=== PATIENT | female | born 1945 | race Caucasian/White ===

== ENCOUNTER 2017-05-28 16:35 | Inpatient (IN) ==
[2017-05-28] MEDS ORDERED: ACETAMINOPHEN 325 MG TABLET PO PRN (16:42)
[2017-05-28] MEDS ORDERED: HYDROmorphone 2 MG/ML SYRINGE IV PRN (16:42)
[2017-05-28] MEDS ORDERED: ONDANSETRON 4 MG/2 ML VIAL IV PRN (16:42)
[2017-05-28] MEDS ORDERED: cefTRIAXone 2 GM in DEXTROSE 5% IN WATER 50 ML IV SCH (16:45)
[2017-05-28] MEDS: 0.9 % SODIUM CHLORIDE 1,000 ML IV SCH (19:35)
[2017-05-28] MEDS: cefTRIAXone 2 GM VIAL IV SCH (20:01)
[2017-05-28] MEDS: oxyCODONE/APAP 5/325MG TABLET PO PRN (20:01)
[2017-05-28] MEDS ORDERED: ZOLPIDEM 5 MG TABLET PO PRN (21:00)
[2017-05-28] MEDS: 0.9 % SODIUM CHLORIDE 10 ML SYRINGE IV SCH (22:19)
[2017-05-29 01:23] LABS: ALT/SGPT 31 U/l (0-40); Albumin 3.4 gm/dL (3.2-5.2); Albumin/Globulin Ratio 1.2 (1.0-2.3); Alkaline Phosphatase 101 U/L (39-117); Blood Urea Nitrogen 30 mg/dl (8-23)
[2017-05-29] MEDS: 0.9 % SODIUM CHLORIDE 10 ML SYRINGE IV SCH ×3 (05:55→22:00)
[2017-05-29] MEDS: 0.9 % SODIUM CHLORIDE 1,000 ML IV SCH ×3 (05:56→19:04)
[2017-05-29] MEDS: cefTRIAXone 2 GM VIAL IV SCH (09:32)
[2017-05-29 10:19] LABS: Basophils # (Auto) 0 K/mcL (0.0-0.3); Basophils % (Auto) 0.3 % (0.0-2.0); Eosinophils # (Auto) 0.3 K/mcL (0.0-0.7); Eosinophils % (Auto) 4.1 % (0.0-7.0); Granulocytes % (Auto) 70.5 % (38.0-78.0); Lymphocytes # (Auto) 1.4 K/mcL (1.5-4.8); Lymphocytes % (Auto) 19.9 % (15.5-49.0); Mean Cell Volume 87.6 fL (80.0-100.0); Mean Corpuscular HGB Conc 33.6 g/dL (31.0-36.0); Mean Corpuscular Hemoglobin 29.4 pg (26.0-34.0); Monocytes # (Auto) 0.4 K/mcL (0.1-0.9); Monocytes % (Auto) 5.2 % (1.0-12.0); Platelet Count 181 K/mcL (140-440); RBC 4.57 M/mcL (4.00-5.20); Red Cell Distribution Width 13.8 % (11.5-14.5)
[2017-05-29] MEDS ORDERED: INDOMETHACIN 25 MG CAPSULE PO ONE (14:18)
[2017-05-29] MEDS ORDERED: NITROGLYCERIN 0.6 MG/HR PATCH TD ONE (14:30)
[2017-05-29] MEDS ORDERED: MIDAZOLAM 2 MG/2 ML VIAL ONE (15:12)
[2017-05-29] MEDS ORDERED: PROPOFOL 60 ML IV ONE (15:12)
[2017-05-29] MEDS ORDERED: MIDAZOLAM 2 MG/2 ML VIAL IV ONE ×2 (15:15→15:30)
[2017-05-29] MEDS ORDERED: PROPOFOL 200 MG/20 ML VIAL IV ONE ×2 (15:15→15:30)
[2017-05-29] MEDS ORDERED: POTASSIUM PHOSPHATE 40 MEQ in 0.9 % SODIUM CHLORIDE 500 ML IV ONE (18:15)
--- NOTE | 2017-05-29 18:21 | Discharge Summary ---
Providers - Providers Patient information: Note initiated : 05/29/17 at 6:18 pm Service Date, if different from initiated Date: [] Patient: Delroy He 71 y/o F admitted on 05/28/17 for Bile Leak. Chief Complaint: [] Date of admission: 05/28/17 Discharge date: 05/30/17 Attending physician: Nba Roberts Hospitalization Hospital course: 71-year-old female with history of chronic calculus cholecystitis who underwent an uneventful cholecystectomy on 24 May 2016. She had a long cystic duct which was clipped with 4 clips proximally. She had small amount of bleeding from the bed of the liver show a 5 Peter-Ponce drain was placed. She was seen the following morning and did not have any significant drainage in the drain but it was left to be followed up in 1 week. She was discharged but returned to the office on 26 May because of bilious leak on her dressing. They have family were re-instructed as to how to keep the drain on suction. She had an ERCP done on 28 May which confirmed a bile leak from the liver bed. They had been emptying about 50 cc per day however there was a problem with the drain so Dr. Solis was contacted and arrangements were made for admission with follow-up ERCP and stenting. She underwent attempted ERCP today but the papilla could not be cannulated after 2 hours. The patient is felt to have probably drainage from an accessory duct since it is unlikely that all 4 clips had fallen off of the main cystic duct. Her white blood count is normal and her liver panel is normal. Dr. Solis has contacted gastroenterology at [facility] in [place] and arrangements are being made for her to be transferred to [facility] for further evaluation and treatment. At the present time she is having significant pain related to the ERCP. I will do labs with amylase and lipase in the morning and hopefully she can be transferred in the morning for follow-up treatment. Discharge diagnosis: Post cholecystectomy bile leak Secondary discharge diagnosis: Postoperative laparoscopic cholecystectomy Reason for admission: Postoperative bile leak Procedures: Attempted ERCP with papillotomy and stenting Complications: None Exam Temp Pulse Resp BP Pulse Ox 98.5 F 78 16 99/55 100 05/29/17 18:05 05/29/17 18:05 05/29/17 18:05 05/29/17 18:05 05/29/17 18:05 - General physical appearance well developed, well nourished, no distress - Eyes PERRL, normal ocular movement. negative: icteric - ENT normal pinna, normal nares, normal mucosa, no hearing loss, no congestion - Head Head exam IM: Present: atraumatic, normocephalic - Neck no masses, no bruits, trachea midline, no lymphadectomy, no venous distension - Cardiovascular Cardiovascular exam IM: Present: normal rate and rhythm - Respiratory normal expansion, normal respiratory effort, clear to percussion, clear to auscultation - Abdomen Abdomen: Present: tender (Diffusely tender in upper abdomen with moderate distention and active bowel sounds), bowel sounds Hernia: Present: none - Integumentary Present: no rash, no growths, no abnormal pigmentation - Neurologic Present: normal coordination, normal sensation - Musculoskeletal Present: normal gait, normal posture - Psychiatric Present: oriented to time, oriented to person, oriented to place, speech is normal, memory intact Discharge Plan - Patient/Caregiver Discharge Instructions Activity: other (Patient will be transferred to [facility] in [place], [place] for a higher level of care) Diet: NPO - Follow up Plan Disposition: [facility] Prognosis: Good Rehab Potential: Good I certify that the patient requires SNF services.: No Overall status at discharge: patient is not back to baseline Pending Studies Resuscitation Status Full Code Diet NPO after Midnight Diet Start SatMay 29 Breakfast Ceftriaxone Sodium (Rocephin) 2 gm IV DAILY [facility] Last Admin: 05/29/17 09:32 Dose: 2 gm Admin: 05/28/17 20:01 Dose: 2 gm Hydromorphone HCl (Dilaudid) 0.5 mg IV Q2HP PRN PRN Reason: PAIN LEVEL > 6 Last Admin: 05/29/17 18:00 Dose: 0.5 mg Sodium Chloride (Sodium Chloride 0.9%) 1,000 mls @ 75 mls/hr IV .[id number] [facility] Last Admin: 05/29/17 09:31 Dose: 75 mls/hr Infusion: 05/29/17 08:55 Dose: 75 mls/hr Admin: 05/29/17 05:56 Dose: Not Given Admin: 05/28/17 19:35 Dose: 75 mls/hr Oxycodone/Acetaminophen (Percocet 5-325 Mg) 1 tab PO Q4HP PRN PRN Reason: PAIN LEVEL 3-6 Last Admin: 05/28/17 20:01 Dose: 1 tab Sodium Chloride (Saline Flush) 10 ml IV Q8 IZZY Last Admin: 05/29/17 14:54 Dose: Not Given Admin: 05/29/17 05:55 Dose: Not Given Admin: 05/28/17 22:19 Dose: Not Given Shift Summary 05/29/17 15:47 Shift Summary by Jennifer Villasenor Pt had ERCP today by Dr. Crenshaw. Has been NPO since midnight. Received indomethacin and Nitro patch to right shoulder.Nitro patch is to be removed by 0250 on this coming night order selector. Got scheduled rocephin IV ABOX push. Dressing change done to lap sites and MILDRED drain site per Dr. Roberts. They are covered with blayne and tegaderm. Pleasant and cooperative. Calls appropriately. Initialized on 05/29/17 15:47 - END OF NOTE
[2017-05-29] MEDS ORDERED: POTASSIUM PHOSPHATE 66 MEQ/15 ML VIAL IV ONE (18:55)
[2017-05-30] MEDS: oxyCODONE/APAP 5/325MG TABLET PO PRN (03:57)
[2017-05-30 05:43] LABS: Basophils # (Auto) 0 K/mcL (0.0-0.3); Basophils % (Auto) 0 % (0.0-2.0); Eosinophils # (Auto) 0.1 K/mcL (0.0-0.7); Eosinophils % (Auto) 0.9 % (0.0-7.0); Granulocytes % (Auto) 78.3 % (38.0-78.0); Lymphocytes # (Auto) 1.1 K/mcL (1.5-4.8); Lymphocytes % (Auto) 14.5 % (15.5-49.0); Mean Cell Volume 88.9 fL (80.0-100.0); Mean Corpuscular HGB Conc 33.2 g/dL (31.0-36.0); Mean Corpuscular Hemoglobin 29.5 pg (26.0-34.0); Monocytes # (Auto) 0.5 K/mcL (0.1-0.9); Monocytes % (Auto) 6.3 % (1.0-12.0); Platelet Count 191 K/mcL (140-440); RBC 4.33 M/mcL (4.00-5.20); Red Cell Distribution Width 14.1 % (11.5-14.5)
[2017-05-30 06:06] LABS: ALT/SGPT 34 U/l (0-40); Alkaline Phosphatase 116 U/L (39-117); Amylase 541 U/L (28-100); Bilirubin,Direct 0.4 mg/dL (0.0-0.3); Blood Urea Nitrogen 19 mg/dl (8-23); Gamma Glutamyl Transpeptidase 68 U/L (5-36); Lipase 140 U/L (7-60); Magnesium 1.8 mg/dL (1.6-2.5); Uric Acid 2.9 mg/dL (2.5-8.0)
[2017-05-30] MEDS: 0.9 % SODIUM CHLORIDE 1,000 ML IV SCH (07:15)
[2017-05-30] MEDS: 0.9 % SODIUM CHLORIDE 10 ML SYRINGE IV SCH ×2 (07:47→14:30)
--- NOTE | 2017-05-30 08:03 | Operative Note ---
DATE OF OPERATION: 05/29/2017 PREOPERATIVE DIAGNOSIS: Bile leak. POSTOPERATIVE DIAGNOSIS: Failed bile duct cannulation. PROCEDURE: Alternative ____ CONSENT: Patient's questions were answered. Risks discussed including perforation, pancreatitis, bleeding and infection. Patient has recently undergone a cholecystectomy and has bile leaking from her Peter-Ponce drain. A HIDA scan has confirmed a bile leak. With intravenous sedation, the Olympus endoscope was introduced into the esophagus and advanced to the second part of the duodenum. The ampulla of Vater was identified and appeared normal. However, a bile duct cannulation was not possible. While bile duct cannulation was not achieved, direct cannulation was attempted for approximately 50 minutes through multiple maneuvers. At that point we did carefully do a needle knife precut papillotomy across the top of the cannula. Bile could be seen coming from the small opening but again all attempts to cannulate that opening failed. There was of course increasing edema and bleeding, making further attempts futile. A couple of the injections were interstitial further causing edema. The pancreatic duct was carefully avoided. After approximately 2 hours of attempt, the procedure was discontinued. There was no bleeding at the end of the procedure, but the papilla was significantly swollen and the scope was withdrawn. ASSESSMENT: Failed bile duct cannulation despite precut papillotomy. PLAN: We will arrange for transfer to a tertiary referral center for further attempt at bile duct cannulation, perhaps acquiring a Rendezvous procedure. MIL:kaleb Job ID: [id number] Doc ID: [id number] Prosper Roberts M.D.
[2017-05-30] MEDS: cefTRIAXone 2 GM VIAL IV SCH (10:02)
[2017-05-30] MEDS ORDERED: BISACODYL 10 MG SUPP.RECT PR PRN (10:57)
--- NOTE | 2017-05-30 16:29 | Discharge Summary ---
Providers - Providers Patient information: Note initiated : 05/30/17 at 4:26 pm Service Date, if different from initiated Date: [] Patient: Delroy He 71 y/o F admitted on 05/29/17 for Bile Leak. Chief Complaint: [] Date of admission: 05/28/17 Discharge date: 05/30/17 Attending physician: Nba Roberts Hospitalization Hospital course: Patient has done well since last evening. There is been a delay in having her transferred because of lack of bed availability and because of other conditions. The patient has a situation that cannot be addressed at a closer facility such as in [place] and needs to be at the [facility] system for gastroenterology liver procedure. She is doing well today. Her amylase and lipase are mildly elevated but her symptoms have improved significantly. She has been approved for transfer to the [facility] in [facility] by fixed wing airflight tonight. She is transferred in stable satisfactory condition. Discharge diagnosis: Postcholecystectomy bile leak Reason for admission: Recurrent abdominal pain and bile leak Procedures: Attempted ERCP and papillotomy Complications: None Exam Temp Pulse Resp BP Pulse Ox 98.6 F 74 18 130/69 93 05/30/17 12:00 05/30/17 07:20 05/30/17 12:00 05/30/17 12:00 05/30/17 12:00 Discharge Plan - Patient/Caregiver Discharge Instructions Activity: other (Patient will be transferred to [facility] in [place], [place] for a higher level of care) Diet: NPO - Follow up Plan Disposition: [facility] Prognosis: Good Rehab Potential: Good I certify that the patient requires SNF services.: No Overall status at discharge: patient is not back to baseline Pending Studies Resuscitation Status Full Code Diet Full Liquid Diet Start Betzy May 30 1004 Bisacodyl (Dulcolax) 10 mg AK DAILYP PRN PRN Reason: Constipation Last Admin: 05/30/17 11:41 Dose: 10 mg Ceftriaxone Sodium (Rocephin) 2 gm IV DAILY IZZY Last Admin: 05/30/17 10:02 Dose: 2 gm Admin: 05/29/17 09:32 Dose: 2 gm Admin: 05/28/17 20:01 Dose: 2 gm Hydromorphone HCl (Dilaudid) 0.5 mg IV Q2HP PRN PRN Reason: PAIN LEVEL > 6 Last Admin: 05/29/17 18:00 Dose: 0.5 mg Sodium Chloride (Sodium Chloride 0.9%) 1,000 mls @ 75 mls/hr IV .[id number] [facility] Last Admin: 05/30/17 07:15 Dose: 75 mls/hr Infusion: 05/30/17 07:14 Dose: 0 mls/hr Admin: 05/29/17 19:04 Dose: 75 mls/hr Infusion: 05/29/17 19:04 Dose: 75 mls/hr Admin: 05/29/17 09:31 Dose: 75 mls/hr Infusion: 05/29/17 08:55 Dose: 75 mls/hr Admin: 05/29/17 05:56 Dose: Not Given Admin: 05/28/17 19:35 Dose: 75 mls/hr Oxycodone/Acetaminophen (Percocet 5-325 Mg) 1 tab PO Q4HP PRN PRN Reason: PAIN LEVEL 3-6 Last Admin: 05/30/17 03:57 Dose: 1 tab Admin: 05/28/17 20:01 Dose: 1 tab Sodium Chloride (Saline Flush) 10 ml IV Q8 IZZY Last Admin: 05/30/17 14:30 Dose: Not Given Admin: 05/30/17 07:47 Dose: Not Given Admin: 05/29/17 22:00 Dose: Not Given Admin: 05/29/17 14:54 Dose: Not Given Admin: 05/29/17 05:55 Dose: Not Given Admin: 05/28/17 22:19 Dose: Not Given Shift Summary 05/30/17 03:45 Shift Summary by Dorothy Schmidt Slept most of the night. Has had minimal abdominal pain; meds once. Up to BR w/ SBA. Knows she is going to [facility] sometime today if they get a bed available. There has been talk about ground and air, but I don't think it's been decided yet how she'll get there. Initialized on 05/30/17 03:45 - END OF NOTE
== END 2017-05-30 17:00 | disposition short-term general hospital (02) | DRG 446 ==
LOC: MEDSUR → PREINTOOBSV 16:37 → MEDSUR 05-29 20:51
PROVIDERS: ADMIT Family Medicine Adult Medicine; ATTEND Family Medicine Adult Medicine

== ENCOUNTER 2021-03-29 07:37 | Inpatient (IN) ==
--- NOTE | 2021-03-29 08:03 | Emergency Department Note ---
HPI General Chief complaint: Neuro Symptoms/Deficit Stated complaint: Sinus congestion, Facial droop? Time Seen by Provider: 03/29/21 07:40 Source: patient Mode of arrival: ambulatory Limitations: no limitations History of Present Illness HPI Narrative: Narrative: 75 yo F w/ h/o previous CVA p/w R facial droop. She reports onset of R facial droop noted by friends on Saturday, was last seen on Saturday w/o droop. The droop is intermittent per her and daughter w/ no clear inciting, aggravating, alleviating factors. She additionally notes paresthesia over the right side of the face and slight occasional difficulty finding words. These Sx were preceded by R nare and eye drainage on Saturday, which then switched to the L on Saturday, and resolved on Saturday. She did have facial droop as well w/ her previous CVA. She has not had any recent cold sores, does not engage in activities that would expose her to tick bites. Related Data Home Medications Medication Instructions Recorded Confirmed oawehsja-vnz-AQ-lycopen-lutein 1 each PO QDAY 01/10/15 03/29/21 milk thistle 175 mg tablet 175 mg PO BID tab 10/18/15 03/29/21 aspirin 81 mg tablet,delayed 81 mg PO QDAY 11/12/17 03/29/21 release cholecalciferol (vitamin D3) 10 400 unit PO QDAY 02/17/19 03/29/21 mcg (400 unit) capsule ginkgo biloba 40 mg tablet 120 mg PO QDAY 11/03/19 03/29/21 Previous Rx's Medication Instructions Recorded sertraline 50 mg tablet 50 mg PO QDAY #30 tab 12/26/20 simvastatin 20 mg tablet 20 mg PO QDAY #90 tab 03/02/21 Allergies Allergy/AdvReac Type Severity Reaction Status Date / Time bacitracin Allergy Intermediate Blisters Verified 01/12/21 11:23 [From Neosporin ([id number])] Neomycin Allergy Intermediate Blisters Verified 01/12/21 11:23 [From Neosporin ([id number])] polymyxin B Allergy Intermediate Blisters Verified 01/12/21 11:23 [From Neosporin (dav-ryb-uqark)] NO FOOD ALLERGIES Allergy None Uncoded 01/12/21 11:23 Review of Systems ROS ROS Narrative: Narrative: All systems ED: reviewed and negative except as stated. PFSH Narrative Patient History Narrative: Narrative: Medical/Surgical/Family History All Active Problems (Updated 03/29/21 @ 12:07 by Manohar Bui MD) Zambrano's palsy (Acute) Prediabetes (Acute) TIA (transient ischemic attack) (Acute) Facial droop (Acute) Right-sided headache (Acute) Memory changes (Acute) Abdominal pain (Acute) Medicare annual wellness visit, initial (Acute) Depression (Acute) Laceration (Acute) Sleeping difficulty (Chronic) Fecal incontinence (Acute) Osteopenia (Chronic) Forgetfulness (Chronic) Insomnia (Chronic) Sleeping difficulty (Chronic) Weight gain (Chronic) Contact dermatitis (Acute) Hyperglycemia (Chronic) Pain of left calf (Chronic) Hip pain, left (Chronic) Fatigue (Chronic) Anxiety (Chronic) Osteoarthritis (Chronic) Vitamin D deficiency (Chronic) Depression (Chronic) Vertigo (Chronic 09/16/12) Verrucous keratosis (Chronic) Vaginal vault prolapse, posthysterectomy (Chronic) Trochanteric bursitis (Chronic 08/11/12) Transient ischemic attack (Chronic) Tobacco abuse (Chronic 07/08/14) Thyroid disorder (Chronic) Derangement of anterior horn of lateral meniscus due to old tear or injury, unspecified knee (Chronic) Rectocele (Chronic 06/18/13) CVA (cerebral vascular accident) (Chronic 04/14/13) Numbness and tingling (Chronic) 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) Mastoiditis (Chronic 08/30/14) Hyperlipidemia (Chronic) Dysarthria (Chronic) Degenerative joint disease (DJD) of hip (Chronic 04/14/14) Deep vein thrombosis (Chronic) Cystocele (Chronic 06/18/13) Chondromalacia of patella (Chronic) Atrophic vaginitis (Chronic) Arthritis (Chronic) Hyperplastic colon polyp (Chronic 01/10/15) Tubular adenoma (Chronic 01/10/15) Medical History Abdominal pain No rebound Abdominal pain Anxiety Stable Arthritis Atrophic vaginitis Change in bowel habits Cholelithiasis with cholecystitis without obstruction Chondromalacia of patella CVA (cerebral vascular accident) (04/14/13) 3 lacunar nonhemorrgagic infarcts - remote Cystocele (06/18/13) Deep vein thrombosis Remote Degenerative joint disease (DJD) of hip (04/14/14) Depression SAD. Depression Derangement of anterior horn of lateral meniscus due to old tear or injury, unspecified knee Dr. Blanchard Dysarthria Fatigue Fecal incontinence Forgetfulness Hip pain, left OA Hyperglycemia Hyperlipidemia Hyperplastic colon polyp (01/10/15) Dr Crenshaw-[facility] & HP Laceration Mastoiditis (08/30/14) [place] Medicare annual wellness visit, initial Memory changes Neurofibroma (07/23/14) Dr. Hollingsworth Numbness and tingling facial Osteoarthritis Postoperative bile leak 2018 Rectocele (06/18/13) Sleeping difficulty Thyroid disorder Past history of hypothyroidism Tobacco abuse (07/08/14) H/O Transient ischemic attack Trochanteric bursitis (08/11/12) Not uncommon after hip replacement surgery Tubular adenoma (01/10/15) 2014 Dr Crenshaw-[facility] & HP. 5 year follow up 2017 normal Upper respiratory infection Urinary frequency Vaginal vault prolapse, posthysterectomy Verrucous keratosis forehead; benign Vertigo (09/16/12) Vitamin D deficiency Surgical History H/O reduction mammoplasty Breast exam declined today History of appendectomy History of bladder suspension procedure 09/30 Dr. Treadwell History of carpal tunnel repair History of colonoscopy 2009 per patient. 01/10/15 TA & [facility]. Five-year follow-up. 08/22/17 Dr Crenshaw normal. History of foot surgery History of laparoscopic cholecystectomy 05/24/2017 History of left hip replacement 05/26/2018 Dr. Blanchard History of lumpectomy of left breast 2001 History of parathyroidectomy 2008 History of right hip replacement (03/01/14) Dr. Blanchard @ [facility] History of surgery (08/04/13) [place] sling urethropexy - Dr. Treadwell History of surgery (08/04/13) Colporrhaphy - Dr. Treadwell History of surgery Right leg S/P ERCP 07/09/17 biliary stent removal. S/P TRACEY-BSO At 25 years old Status post arthroscopic surgery of right knee 08/01 Status post cataract extraction of both eyes with insertion of intraocular lens Family History Brother Diabetes mellitus Unknown Hyperlipidemia Essential hypertension Mother Acute myocardial infarction Social History Smoking Status: Former smoker Alcohol Intake Frequency: holiday/special occasion only Substance Use: does not use Exam Narrative Narrative: Narrative: General Limitations: no limitations General appearance: Present alert and in no apparent distress Head Head: Present atraumatic and normocephalic ENT ENT: Present normal oropharynx, mucous membranes moist, TM's normal bilaterally and normal external ear exam; Absent nasal congestion Neck Neck: Present normal inspection Chest Chest: Present normal inspection and symmetric chest wall rise Respiratory Respiratory: Present normal lung sounds bilaterally; Absent respiratory distress, rales/crackles, wheezes and stridor Cardiovascular Cardiovascular: Present regular rate, normal rhythm, +S1, +S2 and other (2+ B/L radial pulses); Absent systolic murmur and diastolic murmur Adbominal Abdominal: Present soft and normal bowel sounds; Absent distention and tenderness Extremities Extremities: Absent pedal edema Neurological Neurological: Present alert and oriented X3 Expanded Neurological Patient oriented to: Present person, place and time Speech: Present fluid speech and other (NIHSS 1 for facial droop); Absent receptive aphasia, expressive aphasia and dysarthria CRANIAL NERVES: EOM function (II, III, IV, ): Normal, facial sensation (V): Abnormal Right, facial palsy (VII): Abnormal Right (R facial droop. R eyebrow raising present but not symmetric w/ L. B/L eyes squeeze shut tightly.) and tongue deviation (XII): Normal CEREBELLAR FUNCTION: finger to nose: Normal Motor strength - LUE: 5/5 Motor strength - RUE: 5/5 Motor strength - LLE: 5/5 Motor strength - RLE: 5/5 UPPER MOTOR NEURON EXAM: tom neglect: Normal and sensory extinction: Normal SENSORY EXAM UPPER EXTREMITY: Normal: light touch SENSORY EXAM LOWER EXTREMITY: Normal: light touch Psychiatric Psychiatric: Present normal affect Skin Skin: Present warm (WNL) and dry Course Vital Signs Vital signs: Vital Signs Temperature 98.2 F 03/29/21 07:38 Pulse Rate 55 L 03/29/21 07:38 Respiratory Rate 18 03/29/21 07:38 Blood Pressure 131/77 03/29/21 07:38 Pulse Oximetry (%) 93 03/29/21 07:38 Temperature 98.2 F 03/29/21 07:38 Pulse Rate 45 L 03/29/21 12:20 Respiratory Rate 20 03/29/21 10:31 Blood Pressure 124/79 03/29/21 12:20 Pulse Oximetry (%) 91 03/29/21 12:20 MDM MDM Narrative Medical decision making narrative: Narrative: 75 yo F w/ h/o previous CVA p/w R facial droop since Saturday. DDx - CVA, [place] palsy, arrhythmia, metabolic/electrolyte d/o Pt presented clinically stable, in NAD. Her Sx were equivocal between CVA and [place]. There was some slight forehead involvement, but not enough to reliably call this [place], and there was accompanying slight word finding difficulty. While I did note this on my exam, the pt did feel it was present. I checked a CT head which was negative for acute pathology. Her EKG showed no ischemia, no arrhythmia. CMP showed no serious metabolic/electrolyte d/o and CBC showed no anemia. Overall her W/U was unremarkable. I d/w Dr Marie w/ teleneuro who recommended local admission for MRI, echo, further stroke W/U. She was accepted by the hospitalist for admission. Lab Data Lab results reviewed: Yes I reviewed the patient's lab results. Result diagrams: 03/29/21 08:13 03/29/21 08:13 Labs: Lab Results 03/29/21 03/29/21 Range/Units 08:13 08:13 WBC 4.9 (4.5-11.0) K/mcL RBC 4.56 (3.59-5.38) M/mcL Hgb 12.8 (11.2-15.7) g/dL Hct 40.2 (34.1-44.9) % MCV 88.2 (80.0-100.0) fL MCH 28.1 (26.0-34.0) pg MCHC 31.8 (31.0-36.0) g/dL RDW 13.2 (11.5-14.5) % Plt Count 151 (140-440) K/mcL MPV 10.2 (7.4-10.4) fL Neut % (Auto) 57.3 (38.0-78.0) % Lymph % (Auto) 34.8 (15.5-49.0) % [place] % (Auto) 6.1 (1.0-12.0) % Eos % (Auto) 1.6 (0.0-7.0) % Baso % (Auto) 0.2 (0.0-2.0) % Lymph # (Auto) 1.70 (1.50-4.80) K/mcL [place] # (Auto) 0.30 (0.10-0.90) K/mcL Eos # (Auto) 0.08 (0.00-0.70) K/mcL Baso # (Auto) 0.01 (0.00-0.30) K/mcL Absolute Neutrophils 2.79 (1.80-8.00) K/mcL Sodium 140 (133-145) mmol/L Potassium 4.2 (3.3-5.1) mmol/L Chloride 103 (96-108) mmol/L Carbon Dioxide 27 (22-30) mmol/L Anion Gap 10.0 (8.0-16.0) BUN 19 (8-23) mg/dL Creatinine 0.7 (0.6-1.1) mg/dL GFR Calculation 83 Glucose 116 H (70-105) mg/dL Calcium 9.8 (8.6-10.4) mg/dL Total Bilirubin 0.3 (0.1-1.0) mg/dL AST 19 (<32) U/L ALT 15 (<40) U/L Alkaline Phosphatase 98 (39-117) U/L Total Protein 6.7 (5.9-8.4) gm/dL Albumin 3.9 (3.2-5.2) gm/dL Globulin 2.8 (2.2-3.7) gm/dL Albumin/Globulin Ratio 1.4 (1.0-2.3) ED POC Tests ED POC Tests: MILES - SARS Antigen Negative EKG Data EKG #1: EKG attestation: Yes I reviewed and interpreted this EKG. and Yes There are no EKG findings of acute coronary syndrome EKG results narrative: Sinus bradycardia rate of 49, normal intervals, no STEMI, no TWI, no ST depression, no change from previous. Discharge Plan Patient/Caregiver Discharge Instructions Pt seen by MANAGER UTILIZATION REVIEW/PA only: No Clinical Impression: Facial droop Patient Disposition: Xfer As Inpt ([facility]) Condition: Fair Follow up with: Iris Brennan DO [Primary Care Provider] - Prescriptions: No Action sertraline 50 mg tablet 50 mg PO QDAY Qty: 30 RF: 3 simvastatin 20 mg tablet 20 mg PO QDAY Qty: 90 RF: 0 ginkgo biloba 40 mg tablet 120 mg PO QDAY RF: 0 cholecalciferol (vitamin D3) 400 unit capsule 400 unit capsule 400 unit PO QDAY RF: 0 aspirin 81 mg tablet,delayed release (DR/EC) 81 mg PO QDAY RF: 0 zkeeylhs-nmq-LN-lycopen-lutein 1 EACH tablet 1 each PO QDAY RF: 0 milk thistle 175 MG tablet 175 mg PO BID RF: 0
[2021-03-29 08:50] LABS: Basophils # (Auto) 0.01 K/mcL (0.00-0.30); Basophils % (Auto) 0.2 % (0.0-2.0); Eosinophils # (Auto) 0.08 K/mcL (0.00-0.70); Eosinophils % (Auto) 1.6 % (0.0-7.0); Hematocrit 40.2 % (34.1-44.9); Hemoglobin 12.8 g/dL (11.2-15.7); Lymphocytes % (Auto) 34.8 % (15.5-49.0); Mean Cell Volume 88.2 fL (80.0-100.0); Mean Corpuscular HGB Conc 31.8 g/dL (31.0-36.0); Mean Platelet Volume 10.2 fL (7.4-10.4); Monocytes % (Auto) 6.1 % (1.0-12.0); Neutrophils % (Auto) 57.3 % (38.0-78.0); Platelet Count 151 K/mcL (140-440); RBC 4.56 M/mcL (3.59-5.38); Red Cell Distribution Width 13.2 % (11.5-14.5); WBC 4.9 K/mcL (4.5-11.0)
--- NOTE | 2021-03-29 08:53 | Cat Scan Report ---
INDICATION: R facial droop COMPARISON: Previous MRI scan dated 08/30/2014 TECHNIQUE: Axial noncontrast-enhanced images through the brain. Sagittally and coronally reformatted images. FINDINGS: Cerebral hemispheres:No intra-axial hemorrhage. No acute intra-axial attenuation abnormality. No localized mass effect. No midline shift. Right volume is within normal limits for age. There is a 5 mm low density abnormality in the right thalamus consistent with nonacute lacunar infarction. This is new since 2014. Brainstem and cerebellum:No intra-axial abnormality Extra-axial:No acute hemorrhage. No subdural or epidural hematoma. No subarachnoid hemorrhage. Basilar cisterns are normal Calvarial:No calvarial fracture. No lytic lesion There is soft tissue density within right mastoid air cells consistent with mastoiditis Soft tissue, orbits, sinuses:Orbits and visualized facial soft tissues and paranasal sinuses are negative IMPRESSION: 1. Nonacute 5 mm right thalamic lacunar infarction 2. Right mastoiditis 3. No acute intra-axial abnormality. No intracranial hemorrhage The exam was performed using radiation dose optimization techniques including, but not limited to, automated exposure control, adjustment of the mA and/or kV according to patient size and use of iterative reconstruction technique. Interpreted and Authenticated by: Rayo Doe 03/29/21
[2021-03-29 09:09] LABS: ALT/SGPT 15 U/L (<40); AST/SGOT 19 U/L (<32); Albumin 3.9 gm/dL (3.2-5.2); Albumin/Globulin Ratio 1.4 (1.0-2.3); Alkaline Phosphatase 98 U/L (39-117); Bilirubin,Total 0.3 mg/dL (0.1-1.0); Blood Urea Nitrogen 19 mg/dL (8-23); Calcium 9.8 mg/dL (8.6-10.4); Carbon Dioxide 27 mmol/L (22-30); Chloride 103 mmol/L (96-108); Globulin 2.8 gm/dL (2.2-3.7); Glomerular Filtration Rate 83; Glucose 116 mg/dL (70-105)
[2021-03-29] MEDS ORDERED: ASPIRIN 81 MG TAB.CHEW CHEWED ONE (11:30)
--- NOTE | 2021-03-29 12:09 | Internal Med History&Physical ---
HPI History of Present Illness Patient information: Note initiated : 03/29/21 at 12:00 pm Service Date, if different from initiated Date: [] Patient: Delroy He a 75 y/o F admitted on for Sinus Congestion, Facial Droop?. Chief Complaint: [stroke vs TIA vs Zambrano's Palsy] History of present illness: Ms. He is a 75 year old F history of depression and prediabetes, presenting with 1 week history of right-sided facial droopiness as well as right-sided tinnitus, right-sided watering eye, and runny nose. There was no prior similar episode. Patient had intermittent episodes of right sided facial droopiness as well as right-sided tinnitus, right-sided watering eyes, and runny nose over the past week. Patient denies any dysphagia or dysarthria. Her friends point out the right facial droopiness to her over the weekend. Patient denies any upper or lower extremities numbness or weakness. She is complaining of intermittent alternating unilateral forehead headaches described as having firecracker in her head. Vital signs in ED presen tation all within normal limits. Labs were all within normal limits. CT of the head without contrast showing and chronic 5 mm lacunar infarct in the right thalamus. Constitutional Constitutional: Absent chills, excessive sweating, fatigue, fever(s) and weakness EENT Eyes: Absent blurry vision, change in vision, loss of vision and other visual disturbances Additional comments: eye watering Ears: Present tinnitus; Absent decreased hearing Nose, mouth and throat: Absent abnormal hearing, dry mouth, headache(s), nasal congestion and sore throat Additional comments: runny nose Right facial droopiness Cardiovascular Cardiovascular: Absent chest pain, chest pain at rest, edema, irregular heart rhythm and palpatations Respiratory Respiratory: Absent cough, dyspnea and wheezing Gastrointestinal Gastrointestinal: Absent abdominal pain, constipation, diarrhea, nausea and vomiting Musculoskeletal Musculoskeletal: Absent back pain, deformity, limited range of motion, muscle cramps, muscle weakness and numbness Integumentary Integumentary: Absent lesions, rash and wounds Neurological Neurological: Absent focal weakness, headache(s) and numbness Psychiatric Psychiatric: Absent anxiety, depression and hallucinations PFSH PFSH All Active Problems (Updated 03/29/21 @ 12:07 by Manohar Bui MD) Zambrano's palsy (Acute) Prediabetes (Acute) TIA (transient ischemic attack) (Acute) Facial droop (Acute) Right-sided headache (Acute) Memory changes (Acute) Abdominal pain (Acute) Medicare annual wellness visit, initial (Acute) Depression (Acute) Laceration (Acute) Sleeping difficulty (Chronic) Fecal incontinence (Acute) Osteopenia (Chronic) Forgetfulness (Chronic) Insomnia (Chronic) Sleeping difficulty (Chronic) Weight gain (Chronic) Contact dermatitis (Acute) Hyperglycemia (Chronic) Pain of left calf (Chronic) Hip pain, left (Chronic) Fatigue (Chronic) Anxiety (Chronic) Osteoarthritis (Chronic) Vitamin D deficiency (Chronic) Depression (Chronic) Vertigo (Chronic 09/16/12) Verrucous keratosis (Chronic) Vaginal vault prolapse, posthysterectomy (Chronic) Trochanteric bursitis (Chronic 08/11/12) Transient ischemic attack (Chronic) Tobacco abuse (Chronic 07/08/14) Thyroid disorder (Chronic) Derangement of anterior horn of lateral meniscus due to old tear or injury, unspecified knee (Chronic) Rectocele (Chronic 06/18/13) CVA (cerebral vascular accident) (Chronic 04/14/13) Numbness and tingling (Chronic) 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) Mastoiditis (Chronic 08/30/14) Hyperlipidemia (Chronic) Dysarthria (Chronic) Degenerative joint disease (DJD) of hip (Chronic 04/14/14) Deep vein thrombosis (Chronic) Cystocele (Chronic 06/18/13) Chondromalacia of patella (Chronic) Atrophic vaginitis (Chronic) Arthritis (Chronic) Hyperplastic colon polyp (Chronic 01/10/15) Tubular adenoma (Chronic 01/10/15) Medical History Abdominal pain No rebound Abdominal pain Anxiety Stable Arthritis Atrophic vaginitis Change in bowel habits Cholelithiasis with cholecystitis without obstruction Chondromalacia of patella CVA (cerebral vascular accident) (04/14/13) 3 lacunar nonhemorrgagic infarcts - remote Cystocele (06/18/13) Deep vein thrombosis Remote Degenerative joint disease (DJD) of hip (04/14/14) Depression SAD. Depression Derangement of anterior horn of lateral meniscus due to old tear or injury, unspecified knee Dr. Blanchard Dysarthria Fatigue Fecal incontinence Forgetfulness Hip pain, left OA Hyperglycemia Hyperlipidemia Hyperplastic colon polyp (01/10/15) Dr Crenshaw-[facility] Laceration Mastoiditis (08/30/14) [facility] Medicare annual wellness visit, initial Memory changes Neurofibroma (07/23/14) Dr. Hollingsworth Numbness and tingling facial Osteoarthritis Postoperative bile leak 2018 Rectocele (06/18/13) Sleeping difficulty Thyroid disorder Past history of hypothyroidism Tobacco abuse (07/08/14) H/O Transient ischemic attack Trochanteric bursitis (08/11/12) Not uncommon after hip replacement surgery Tubular adenoma (01/10/15) 2014 Dr Crenshaw-[facility]. 5 year follow up 2017 normal Upper respiratory infection Urinary frequency Vaginal vault prolapse, posthysterectomy Verrucous keratosis forehead; benign Vertigo (09/16/12) Vitamin D deficiency Surgical History H/O reduction mammoplasty Breast exam declined today History of appendectomy History of bladder suspension procedure 09/30 Dr. Treadwell History of carpal tunnel repair History of colonoscopy 2009 per patient. 01/10/15 [facility]. Five-year follow-up. 08/22/17 Dr Crenshaw normal. History of foot surgery History of laparoscopic cholecystectomy 05/24/2017 History of left hip replacement 05/26/2018 Dr. Blanchard History of lumpectomy of left breast 2001 History of parathyroidectomy 2008 History of right hip replacement (03/01/14) Dr. Blanchard @ [facility] History of surgery (08/04/13) [place] sling urethropexy - Dr. Treadwell History of surgery (08/04/13) Colporrhaphy - Dr. Treadwell History of surgery Right leg S/P ERCP 07/09/17 biliary stent removal. S/P TRACEY-BSO At 25 years old Status post arthroscopic surgery of right knee 08/01 Status post cataract extraction of both eyes with insertion of intraocular lens Family History Brother Diabetes mellitus Unknown Hyperlipidemia Essential hypertension Mother Acute myocardial infarction Social History household members: family housing: house lives independently: Yes marital status: education level: college occupational status: retired smoking status: Current some day smoker alcohol intake frequency: holiday/special occasion only substance use type: does not use MEDS/ALLERGIES Home Medications and Allergies Home Medications Medication Instructions Recorded Confirmed Type xeksketo-thy-WM-lycopen-lutein 1 each PO QDAY 01/10/15 03/29/21 History milk thistle 175 mg tablet 175 mg PO BID tab 10/18/15 03/29/21 History aspirin 81 mg tablet,delayed 81 mg PO QDAY 11/12/17 03/29/21 History release cholecalciferol (vitamin D3) 10 400 unit PO QDAY 02/17/19 03/29/21 History mcg (400 unit) capsule ginkgo biloba 40 mg tablet 120 mg PO QDAY 11/03/19 03/29/21 History sertraline 50 mg tablet 50 mg PO QDAY #30 tab 12/26/20 03/29/21 Rx simvastatin 20 mg tablet 20 mg PO QDAY #90 tab 03/02/21 03/29/21 Rx Allergies Allergy/AdvReac Type Severity Reaction Status Date / Time bacitracin Allergy Intermediate Blisters Verified 01/12/21 11:23 [From Neosporin ([id number])] Neomycin Allergy Intermediate Blisters Verified 01/12/21 11:23 [From Neosporin ([id number])] polymyxin B Allergy Intermediate Blisters Verified 01/12/21 11:23 [From Neosporin ([id number])] NO FOOD ALLERGIES Allergy None Uncoded 01/12/21 11:23 EXAM Constitutional Vitals: Temp Pulse Resp BP Pulse Ox 36.8 C 49 L 20 103/81 92 03/29/21 07:38 03/29/21 11:29 03/29/21 10:31 03/29/21 11:29 03/29/21 11:29 General appearance: cooperative and no acute distress Head Head exam: Present atraumatic and normocephalic Additional comments: minor right upper and lower facial droopiness Eye Eye exam: Present EOMI and PERRL Additional comments: Right eye droopiness ENT ENT exam: Present mucous membranes moist, normal exam and normal external ear exam Additional comments: Right lips droopiness Neck Neck exam: Present normal inspection; Absent lymphadenopathy, tenderness and thyromegaly Respiratory Respiratory exam: Absent accessory muscle use, respiratory distress and wheezes Cardiovascular Cardiovascular exam: Present normal rate and rhythm; Absent JVD GI/Abdominal GI/Abdominal exam: Present normal bowel sounds and soft; Absent organomegaly and tenderness Extremities Exam Extremities exam: Present full ROM, normal capillary refill and normal inspection; Absent tenderness Neurological Exam Neurological exam: Present alert, CN II-XII intact and oriented X3; Absent motor sensory deficit Psychiatric Psychiatric exam: Present normal affect and normal mood; Absent anxious and depressed Skin Skin exam: Present dry and intact DATA Data Completed and Pending Labs: Labs from last 24 hours 03/29/21 03/29/21 08:13 08:13 WBC 4.9 RBC 4.56 Hgb 12.8 Hct 40.2 MCV 88.2 MCH 28.1 MCHC 31.8 RDW 13.2 Plt Count 151 MPV 10.2 Neut % (Auto) 57.3 Lymph % (Auto) 34.8 [place] % (Auto) 6.1 Eos % (Auto) 1.6 Baso % (Auto) 0.2 Lymph # (Auto) 1.70 [place] # (Auto) 0.30 Eos # (Auto) 0.08 Baso # (Auto) 0.01 Absolute Neutrophils 2.79 Sodium 140 Potassium 4.2 Chloride 103 Carbon Dioxide 27 Anion Gap 10.0 BUN 19 Creatinine 0.7 GFR Calculation 83 Glucose 116 H Calcium 9.8 Total Bilirubin 0.3 AST 19 ALT 15 Alkaline Phosphatase 98 Total Protein 6.7 Albumin 3.9 Globulin 2.8 Albumin/Globulin Ratio 1.4 A/P Assessment and plan (1) Facial droop: Status: Acute (2) CVA (cerebral vascular accident): Status: Chronic Comment: 3 lacunar nonhemorrgagic infarcts - remote Qualifiers: CVA mechanism: unspecified Qualified Code(s): I63.9 - Cerebral infarction, unspecified (3) TIA (transient ischemic attack): Status: Acute (4) Depression: Status: Chronic Comment: SAD. Qualifiers: Depression Type: unspecified Qualified Code(s): F32.9 - Major depressive disorder, single episode, unspecified (5) Prediabetes: Status: Acute (6) Zambrano's palsy: Status: Acute Narrative A/P Narrative: Assessment and Plans: 1. Right facial droopiness: DDx: Ischemic stroke vs TIA vs Zambrano's Palsy Admit to inpatient PCU with telemetry Neuro check q2hr Nursing bedside swallowing evaluation. If pass can start regular diet Premissive HTN for 48 hr MRI brain w/o Carotid US Bilaterally 2D echocardiogram HgA1c screening Lipid panel screening ASA Statin Physical therapy evaluation and treatment Occupational therapy evaluation and treatment Consider oral steroid treatment if symptoms worsen and workup for stroke/TIA negative 2. Prediabetes: HgA1c screening Nursing bedside swallowing evaluation. If pass can start regular diet 3. Depression: Continue Sertraline GI ppx: not currently indicated DVT ppx: Lovenox Code status: Full Prognosis: stable Disposition: inpatient PCU with telemetry Time Spent With Patient Time: Total time spent is greater than 50% in coordination of care (as documented) at patient's floor/unit and/or counseling patient: Total time spent with greater than 50% in coordination of care (as documented) at patient's floor/unit and/or counseling patient:: Greater than 35 minutes
[2021-03-29] MEDS ORDERED: IPRATROPIUM/ALBUTEROL 3 ML AMPUL.NEB NEB PRN (13:56)
[2021-03-29] MEDS ORDERED: SENNOSIDES 1 TABLET PO PRN (13:56)
[2021-03-29] MEDS ORDERED: ACETAMINOPHEN 325 MG TABLET PO PRN (13:56)
[2021-03-29] MEDS ORDERED: ONDANSETRON 4 MG/2 ML VIAL IV PRN (13:56)
[2021-03-29] MEDS ORDERED: hydrALAZINE 20 MG/ML VIAL IV PRN (13:56)
[2021-03-29] MEDS ORDERED: LACTULOSE 20 GM/30 ML ORAL.SOL PO PRN (13:56)
--- NOTE | 2021-03-29 15:17 | Magnetic Resonance Report ---
INDICATION: stroke vs tia COMPARISON: Previous brain CT scan dated 03/29/2021. Previous MRI scan dated 08/30/2014 TECHNIQUE: Sagittal T1 FLAIR images. Axial DWI, T1 FLAIR, T2 FLAIR, T2, GRE. Coronal T2 FSE. FINDINGS: Cerebral hemispheres:No restricted diffusion. No acute infarction. No susceptibility. No hemorrhagic abnormality. Multiple foci of increased signal intensity in the periventricular and subcortical white matter of both hemispheres. Appearance is essentially unchanged since previous examination and remains consistent with small vessel ischemic change. No well-defined focal signal abnormalities. No localized mass effect. No midline shift. Brain stem and cerebellum:No intra-axial abnormalities. Extra-axial:Normal flow void within vessels at the base of the brain. No subdural or epidural hematoma. No detectable subarachnoid hemorrhage Cavernous sinuses and basilar cisterns are normal. Skull:No calvarial lesions. No lytic lesion. No detectable fracture. Temporal bones:Signal abnormality in the right mastoid sinuses consistent with mastoiditis. Probable mild left mastoiditis. Orbits, facial soft tissues:Globes are normal. No intraorbital abnormality. Facial soft tissues are negative Paranasal sinuses:Maxillary, frontal, ethmoid sinuses are negative. Sphenoid sinuses are negative. No mucosal thickening. No air-fluid levels. No discrete soft tissue mass IMPRESSION: 1. No restricted diffusion. No acute infarction 2. White matter abnormality consistent with small vessel ischemic change. No definite interval change since 08/30/2014 3. Mastoiditis, right worse than left Interpreted and Authenticated by: Rayo Doe 03/29/21
--- NOTE | 2021-03-29 15:36 | Ultrasound Report ---
INDICATION: stroke workup COMPARISON: None. TECHNIQUE: Carotid arteries were imaged in sagittal and transverse planes using 5 mHz linear probe: Doppler, color, and 2D. FINDINGS: Minimal focal plaque in the proximal right internal carotid artery. There is no flow disturbance. No velocity elevation. No ulceration. Internal carotid arteries are tortuous bilaterally. Maximum Systolic Flow Velocity: - Right common carotid artery: 64 cm/sec - Right internal carotid artery: 65 cm/sec - Left common carotid artery: 60 cm/sec - Left internal carotid artery: 55 cm/sec There is no hemodynamically significant stenosis. Vertebral arteries are antegrade patent bilaterally IMPRESSION: 1. Minimal plaque in the proximal right internal carotid artery 2. No hemodynamically significant stenosis. No evidence for ulceration. Interpreted and Authenticated by: Rayo Doe 03/29/21
[2021-03-29] MEDS: 0.9 % SODIUM CHLORIDE 10 ML SYRINGE IV SCH ×2 (19:52→21:56)
[2021-03-29] MEDS: DOCUSATE SODIUM 100 MG CAPSULE PO SCH (19:53)
[2021-03-29] MEDS ORDERED: MILK THISTLE 175 MG PO SCH (21:00)
[2021-03-30 07:29] LABS: Basophils # (Auto) 0.01 K/mcL (0.00-0.30); Basophils % (Auto) 0.2 % (0.0-2.0); Eosinophils # (Auto) 0.12 K/mcL (0.00-0.70); Eosinophils % (Auto) 2.4 % (0.0-7.0); Hematocrit 42.6 % (34.1-44.9); Hemoglobin 13.3 g/dL (11.2-15.7); Lymphocytes # (Auto) 1.68 K/mcL (1.50-4.80); Lymphocytes % (Auto) 33.3 % (15.5-49.0); Mean Cell Volume 90.1 fL (80.0-100.0); Mean Corpuscular HGB Conc 31.2 g/dL (31.0-36.0); Mean Platelet Volume 10.7 fL (7.4-10.4); Monocytes % (Auto) 5.9 % (1.0-12.0); Neutrophils % (Auto) 58.2 % (38.0-78.0); Platelet Count 136 K/mcL (140-440); RBC 4.73 M/mcL (3.59-5.38); Red Cell Distribution Width 13.3 % (11.5-14.5); WBC 5.1 K/mcL (4.5-11.0)
[2021-03-30 07:43] LABS: ALT/SGPT 14 U/L (<40); AST/SGOT 20 U/L (<32); Albumin 3.8 gm/dL (3.2-5.2); Albumin/Globulin Ratio 1.3 (1.0-2.3); Alkaline Phosphatase 93 U/L (39-117); Bilirubin,Total 0.4 mg/dL (0.1-1.0); Blood Urea Nitrogen 19 mg/dL (8-23); Calcium 9.5 mg/dL (8.6-10.4); Carbon Dioxide 25 mmol/L (22-30); Chloride 103 mmol/L (96-108); Globulin 2.9 gm/dL (2.2-3.7); Glomerular Filtration Rate 83; Glucose 105 mg/dL (70-105); HDL Cholesterol 44 mg/dL (>40); LDL Cholesterol,Calculated 95 mg/dL (<100); Non-HDL Cholesterol 137 mg/dL (<130); Phosphorous 2.6 mg/dL (2.5-4.5); Triglycerides 211 mg/dL (<150)
[2021-03-30] MEDS: DOCUSATE SODIUM 100 MG CAPSULE PO SCH (08:42)
[2021-03-30] MEDS ORDERED: ASPIRIN 81 MG TAB.CHEW PO SCH (09:00)
[2021-03-30] MEDS ORDERED: GINKGO BILOBA 40 MG PO SCH (09:00)
[2021-03-30] MEDS ORDERED: SIMVASTATIN 20 MG TABLET PO SCH (09:00)
[2021-03-30] MEDS ORDERED: SERTRALINE 50 MG TABLET PO SCH (09:00)
[2021-03-30] MEDS ORDERED: MULTIVIT,THER IRON,CA,FA & MIN 1 TABLET PO SCH (09:00)
[2021-03-30] MEDS ORDERED: VITAMIN D3 400 UNIT TABLET PO SCH (09:00)
[2021-03-30] MEDS ORDERED: ENOXAPARIN 40 MG/0.4 ML SYRINGE SQ SCH (09:00)
[2021-03-30] MEDS: 0.9 % SODIUM CHLORIDE 10 ML SYRINGE IV SCH (10:30)
--- NOTE | 2021-03-30 11:03 | Discharge Summary ---
Discharge Provider Provider Patient information: Note initiated : 03/30/21 at 10:59 am Service Date, if different from initiated Date: [] Patient: Delroy He 75 y/o F admitted on 03/29/21 for Sinus Congestion, Facial Droop?. Chief Complaint: [stroke/TIA vs Zambrano's palsy vs mastoiditis] Date of admission: 03/29/21 13:52 Discharge date: 03/30/21 Primary care physician: Iris Brennan DO Consults: 03/29/21 Consult to Physician [CONS] Stat Comment: Consulting Provider: Manohar Bui Reason For Exam: Physician to Consult Discharge Meds Discharge Medications Home Medications fdjamrqz-xtu-HY-lycopen-lutein 1 each PO QDAY 01/10/15 [History Confirmed 03/29/21 Last Taken 05/28/17 07:00] milk thistle 175 mg tablet 175 mg PO BID tab 10/18/15 [History Confirmed 03/29/21 Last Taken 03/29/21 07:00] aspirin 81 mg tablet,delayed release 81 mg PO QDAY 11/12/17 [History Confirmed 03/29/21 Last Taken 03/29/21 07:00] cholecalciferol (vitamin D3) 10 mcg (400 unit) capsule 400 unit PO QDAY 02/17/19 [History Confirmed 03/29/21 Last Taken 03/29/21] ginkgo biloba 40 mg tablet 120 mg PO QDAY 11/03/19 [History Confirmed 03/29/21 Last Taken Unknown] sertraline 50 mg PO HS 03/29/21 [History Confirmed 03/29/21 Last Taken 03/28/21] simvastatin 20 mg PO HS 03/29/21 [History Confirmed 03/29/21 Last Taken 03/28/21] levofloxacin 500 mg PO QDAY #10 tab 03/30/21 [Rx Last Taken Unknown] COURSE Hospital Course Hospital course: Patient was admitted on March 29, 2021 for right facial droopiness, right-sided tinnitus, and runny nose and watery eyes for about a week. Differential diagnosis include stroke/TIA versus Zambrano's palsy versus mastoiditis. CT of the head without contrast as well as MRI of the brain without contrast both did not see any signs of acute ischemic or hemorrhagic stroke. 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 Carotid duplex ultrasound did not show any hemodynamically significant arterial stenosis. 2D echocardiogram was performed and result was pending. Patient's symptoms improved by day to hospitalizations. She remained clinically stable. The decision was made to discharge patient home with prescriptions of Levaquin for 10 days. Follow-up appointment with PCP 1 to 2 weeks made for the patient. All questions were answered prior to patient being physically discharged. Discharge diagnosis: Zambrano's palsy vs mastoiditis Time Spent with Patient Time attestation: Total time spent providing and/or coordinating discharge services: Patient was admitted on March 29, 2021 for right facial droopiness, right- sided tinnitus, and runny nose and watery eyes for about a week. Differential diagnosis include stroke/TIA versus Zambrano's palsy versus mastoiditis. CT of the head without contrast as well as MRI of the brain without contrast both did not see any signs of acute ischemic or hemorrhagic stroke. 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 Carotid duplex ultrasound did not show any hemodynamically significant arterial stenosis. 2D echocardiogram was performed and result was pending. Patient's symptoms improved by day to hospitalizations. She remained clinically stable. The decision was made to discharge patient home with prescriptions of Levaquin for 10 days. Follow-up appointment with PCP 1 to 2 weeks made for the patient. All questions were answered prior to patient being physically discharged. EXAM Constitutional Vitals: Temp Pulse Resp BP Pulse Ox 36.3 C 52 L 16 123/97 94 03/30/21 07:01 03/30/21 07:01 03/30/21 05:00 03/30/21 07:01 03/30/21 07:01 General appearance: cooperative and no acute distress Head Head exam: Present atraumatic and normocephalic Eye Eye exam: Present EOMI and PERRL ENT ENT exam: Present mucous membranes moist, normal exam and normal external ear exam Neck Neck exam: Present normal inspection; Absent lymphadenopathy, tenderness and thyromegaly Respiratory Respiratory exam: Absent accessory muscle use, respiratory distress and wheezes Cardiovascular Cardiovascular exam: Present normal rate and rhythm; Absent JVD GI/Abdominal GI/Abdominal exam: Present normal bowel sounds and soft; Absent organomegaly and tenderness Extremities Exam Extremities exam: Present full ROM, normal capillary refill and normal inspection; Absent tenderness Neurological Exam Neurological exam: Present alert, CN II-XII intact and oriented X3; Absent motor sensory deficit Psychiatric Psychiatric exam: Present normal affect and normal mood; Absent anxious and depressed Skin Skin exam: Present dry and intact Discharge Data Data Completed and Pending Labs on day of discharge: Labs from last 24 hours 03/30/21 03/30/21 03/29/21 04:52 04:52 07:57 WBC 5.1 RBC 4.73 Hgb 13.3 Hct 42.6 MCV 90.1 MCH 28.1 MCHC 31.2 RDW 13.3 Plt Count 136 L MPV 10.7 H Neut % (Auto) 58.2 Lymph % (Auto) 33.3 [place] % (Auto) 5.9 Eos % (Auto) 2.4 Baso % (Auto) 0.2 Lymph # (Auto) 1.68 [place] # (Auto) 0.30 Eos # (Auto) 0.12 Baso # (Auto) 0.01 Absolute Neutrophils 2.94 Sodium 139 Potassium 4.2 Chloride 103 Carbon Dioxide 25 Anion Gap 11.0 BUN 19 Creatinine 0.7 GFR Calculation 83 Glucose 105 Hemoglobin A1c 6.0 Estim Average Glucose 126 Calcium 9.5 Phosphorus 2.6 Magnesium 2.3 Total Bilirubin 0.4 AST 20 ALT 14 Alkaline Phosphatase 93 Total Protein 6.7 Albumin 3.8 Globulin 2.9 Albumin/Globulin Ratio 1.3 Triglycerides 211 H Cholesterol 181 LDL Cholesterol, Calc 95 Non-HDL Cholesterol 137 H HDL Cholesterol 44 Discharge Plan Patient/Caregiver Discharge Instructions Activity: increase activity as tolerated Diet: Consistent Carbohydrate Instructions: Transient Ischemic Attack (GEN), Zambrano Palsy (GEN), Mastoiditis (GEN) Prescriptions: New levofloxacin 500 mg tablet 500 mg PO QDAY Qty: 10 RF: 0 Continued ginkgo biloba 40 mg tablet 120 mg PO QDAY RF: 0 cholecalciferol (vitamin D3) 400 unit capsule 400 unit capsule 400 unit PO QDAY RF: 0 aspirin 81 mg tablet,delayed release (DR/EC) 81 mg PO QDAY RF: 0 pomgpmxr-sho-NQ-lycopen-lutein 1 EACH tablet 1 each PO QDAY RF: 0 milk thistle 175 MG tablet 175 mg PO BID RF: 0 simvastatin 20 mg tablet 20 mg PO HS RF: 0 sertraline 50 mg tablet 50 mg PO HS RF: 0 Follow Up Plan Follow up with: Iris Brennan DO [Primary Care Provider] - 04/06/21 2:00 pm (Please check in at 1:45 pm) Patient Disposition: Home, Self-Care Prognosis: Fair Rehab Potential: Good I certify that the patient requires SNF services: No Overall status at discharge: patient is progressing back to baseline Discharge Orders: Discharge Order (Routine); Ordered 03/30/21 Ordered By: Manohar Bui
--- NOTE | 2021-03-30 18:33 | EKG ---
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
== END 2021-03-30 12:06 | disposition home or self-care (01) | DRG 74 ==
LOC: ED 07:37 → ICU 13:52
PROVIDERS: ADMIT Internal Medicine; ATTEND Internal Medicine